=== PATIENT | female | born 1940 ===

== ENCOUNTER 2024-08-31 13:13 | Outpatient (AMB) | payer MEDICARE, SELFPAY ==
--- NOTE | 2024-08-31 13:18 | A.OFFVIS_ITS ---
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 She describes her pains as sharp in nature. She did have injections of Zilretta given into both of her knees by a provider at [facility] approximately 2 months ago. She got fairly good relief from those injections. She continues to exercise as much as possible. She does take Tylenol as needed for pain. Allergies Seasonal Allergies Allergy (Unknown, Verified 08/31/24 13:49) Unknown Sulfa (Sulfonamide Antibiotics) Adverse Reaction (Unknown, Verified 08/31/24 13:49) Unknown pollen Adverse Reaction (Unknown, Uncoded 08/31/24 13:49) Unknown Medication List - Last Reconciled 09/01/24 by Juan J Montes MD acetaminophen ER (Tylenol Arthritis Pain) 1,300 mg PO Q12H bupropion HCl XL 300 mg PO DAILY sumatriptan succinate 100 mg PO ONCE PRN PFSH Medical History (Updated 09/01/24 @ 06:48 by Juan J Montes MD) HX: breast cancer Osteopenia Osteoporosis Acute depression Arthritis Social History (Updated 08/31/24 @ 13:51 by JAYSON Barr) Alcohol intake: current Alcohol intake frequency: a few times a month Patient Tobacco Use Status: Former Tobacco user Current occupational status: retired Physical Exam Vital Signs: BMI result Body Mass Index 19.4 Const Other: Well-nourished well-developed very friendly female awake alert and oriented x3 in no acute distress Extrem Other: Bilateral lower extremity examination shows good capillary refill, no skin lesions noted, normal sensation light touch Bilateral knee examination shows minimal effusions, palpable crepitus with range of motion, pain with range of motion, range of motion from -3 degrees to 115 degrees, no instability Results Reviewed Results Reviewed: X-rays of the patient's bilateral knee show joint space narrowing, subchondral sclerosis, no acute bony abnormalities MRI of the patient's bilateral knee show severe degenerative joint disease Assessment & Plan Assessment & Plan (1) Arthritis of left knee: Code(s): M17.12 - Unilateral primary osteoarthritis, left knee Category: Medical (2) Arthritis of right knee: Code(s): M17.11 - Unilateral primary osteoarthritis, right knee Category: Medical Plan Ms. Garcia presents with bilateral knee pains, left greater than right, due to degenerative joint disease. I had a lengthy discussion with the patient regarding the treatment options. At this point the patient's symptoms are tolerable to her. She will continue with her exercise program. She will follow up with me on an as-needed basis should her symptoms worsen in any way. I spent 21 minutes in reviewing the patient's records and imaging studies, seeing the patient and documenting in the medical record. Orders: Orders XR knee LT 3V 08/31/24 M25.562 - Pain in left knee XR knee RT 3V 08/31/24 M25.561 - Pain in right knee Coding Level of Care Code New Pt Level 3 (92156) Complex EM visit Add On G2211 Diagnoses Arthritis of left knee M17.12 Arthritis of right knee M17.11
[2024-08-31 13:49] VITALS: BMI 19.4
== END 2024-08-31 14:23 | disposition home or self-care (01) ==
PROVIDERS: Visit Provider Orthopaedic Surgery
DX: M17.0 Bilateral primary osteoarthritis of knee (principal)
CPT/HCPCS: 99203; G2211

== ENCOUNTER 2024-08-31 15:28 | Outpatient (REF) | payer MEDICARE, SELFPAY ==
--- NOTE | ~2024-08-31 | XR_ITS ---
EXAMINATION: XR LEFT KNEE CLINICAL INFORMATION: Pain in left knee M25.562. COMPARISON: None available TECHNIQUE: Three views of the left knee. FINDINGS: Mild -moderate tricompartment osteoarthritis, with joint space loss, osteophytes. Chronic calcification anterior to the proximal tibia on the lateral projection. No acute fracture or dislocation. No significant joint effusion. No abnormal soft tissue calcification. XR/XR knee LT 3V IMPRESSION: Mild -moderate tricompartment osteoarthritis. Study is assigned/presented to me for interpretation on Oct 07, 2024 Electronically signed by: Jose L Hubbard MD 10/07/2024 02:11 PM STEVEN
--- NOTE | ~2024-08-31 | XR_ITS ---
EXAMINATION: XR RIGHT KNEE CLINICAL INFORMATION: Pain in right knee M25.561. COMPARISON: None available. TECHNIQUE: Three views of the right knee. FINDINGS: Severe lateral compartment arthritis. Mild -moderate patellofemoral and mild lateral compartment arthritis. No visible acute fracture or dislocation. No significant effusion. Ossifications in the lateral aspect of the knee, could reflect loose bodies. XR/XR knee RT 3V IMPRESSION: Tricompartment osteoarthritis. Severe lateral compartment arthritis. Study is assigned/presented to me for interpretation on Oct 07, 2024 Electronically signed by: Jose L Hubbard MD 10/07/2024 04:35 PM STEVEN
== END 2024-08-31 15:29 | disposition home or self-care (01) ==
LOC: HO.HOSX 15:28
PROVIDERS: Visit Provider Orthopaedic Surgery
DX: M25.562 Pain in left knee (principal); M25.561 Pain in right knee; M17.0 Bilateral primary osteoarthritis of knee
CPT/HCPCS: 73562; 99202

== ENCOUNTER 2025-01-05 11:02 | Outpatient (AMB) | payer MEDICARE, SELFPAY ==
[2025-01-05 11:04] VITALS: BMI 19.4
--- NOTE | 2025-01-05 11:04 | MHC.OFFVIS ---
Vital Signs 01/05/25 11:04 Height 5 ft 2.5 in Weight 108 lb BMI 19.4 Intake Visit Reasons: Right knee pain Intake Note: Mishel is an 84 year old female who presents with complaints of progressively worsening bilateral knee pains, right greater than left. She describes her right knee pain as sharp and severe in nature, /10. Her right knee pain has gotten worse over the last few years in spite of continued non operative treatments. She has tried physical therapy exercises which aggravated her pain. She has also tried Tylenol and anti-inflammatory medicines which gave her minimal relief. She has had multiple injections. The most recent injection gave her only temporary relief. The patient has difficulty walking even short distances because of her right knee pain. At this point her right knee pain is interfering with her activities of daily living and her ability to sleep well through the night. Allergies Seasonal Allergies Allergy (Unknown, Verified 01/05/25 11:12) Unknown Sulfa (Sulfonamide Antibiotics) Adverse Reaction (Unknown, Verified 01/05/25 11:12) Unknown pollen Adverse Reaction (Unknown, Uncoded 01/05/25 11:12) Unknown Medication List - Last Reconciled 01/05/25 by Juan J Montes MD acetaminophen ER (Tylenol Arthritis Pain) 1,300 mg PO Q12H bupropion HCl XL 300 mg PO DAILY citalopram 10 mg PO DAILY sumatriptan succinate 100 mg PO ONCE PRN tramadol 50 mg PO Q6H PRN PFSH Medical History HX: breast cancer Osteopenia Osteoporosis Acute depression Arthritis Social History Alcohol intake: current Alcohol intake frequency: a few times a month Patient Tobacco Use Status: Former Tobacco user Current occupational status: retired Physical Exam Vital Signs: BMI result Body Mass Index 19.4 Const Other: Well-nourished well-developed very friendly female awake alert and oriented x3 in no acute distress Extrem Other: Bilateral lower extremity examination shows good capillary refill, no skin lesions noted, normal sensation light touch Right knee examination shows a minimal effusion, palpable crepitus with range of motion, pain with range of motion, range of motion from -3 degrees to 115 degrees, no instability Results Reviewed Results Reviewed: X-rays of the patient's right knee taken previously show end-stage degenerative joint disease with grade 4 [id number] arthritis, subchondral sclerosis, osteophyte formation, no acute bony abnormalities Assessment & Plan Assessment & Plan (1) Right knee pain: Code(s): M25.561 - Pain in right knee Category: Medical (2) Arthritis of right knee: Code(s): M17.11 - Unilateral primary osteoarthritis, right knee Category: Medical Plan Ms. Roberts presents with progressively worsening right knee pain due to end-stage degenerative joint disease. I had a lengthy discussion with the patient regarding the treatment options. At this point she has failed continued non operative treatments. The risks and benefits of right total knee replacement surgery were discussed at length with the patient. The patient is interested in proceeding with surgery. I will have my office contact the patient to pick a surgery date. I will see her back to his prior to her surgery to answer any final questions that she might have. I spent 21 minutes in reviewing the patient's records and imaging studies, seeing the patient and documenting in the medical record. Coding Level of Care Code New Pt Level 3 (06309) Complex EM visit Add On G2211 Diagnoses Right knee pain M25.561 Arthritis of right knee M17.11
--- OUTSIDE RECORDS SUMMARY | 2025-01-05 13:13 | XMS_ITS | Clinical Summary ---
Author Organization [facility] Address [address] [place] [address] Care Team Providers Care Residential Solar Sales Consultant Name Role Phone Meenu Moya MD Primary Care Provider Immunizations Name Administration Dates Next Due Covid-19 (Pfizer) Dilution Required 10/16/2020 Social History Tobacco Use Types Packs/Day Years Used Date Smoking Tobacco: Never Assessed Sex and Gender Information Value Date Recorded Sex Assigned at Female 10/16/2020 1:57 PM EST Gender Identity Not on file Sexual Orientation Not on file Plan of Treatment Health Maintenance Due Date Last Done Comments Depression Screening 1950 Preventative Health Evaluation 1956 DTap / Tdap / Td (1 - Tdap) 1957 Shingrix-Zoster Vaccine (1 of 2) 1988 Fall Risk Assessment 2003 Osteoporosis Screening (DEXA Scan) 2003 Pneumococcal Vaccine (1 of 1 - PCV) 2003 RSV Adult > 60+ Yrs or Pregn ant (1 - 1-dose 75+ series) 2013 COVID-19 Vaccine (2 - 2023-2 5 season) 2024 10/16/2020 Influenza Vaccine (#1) 2024 Hepatitis B Vaccines Aged Out No long er eligible based on patient's age to complete this topic RSV Ped < 20 months Aged Out No longe r eligible based on patient's age to complete this topic Care Teams Residential Solar Sales Consultant Relationship Specialty Start Date End Date Meenu Moya MD [address] [place] [address] PCP - General Internal Medicine 10/16/20
--- OUTSIDE RECORDS SUMMARY | 2025-01-05 13:13 | XMS_ITS | Patient Health Record ---
Author Organization [facility] Address [address] [place] [address] Care Team Providers Care Respiratory Therapy Director Name Role Phone Meenu Moya Primary Care Provider Demarcus Lackey Unavailable [phone] Allergies Allergen (clinical drug ingredient) Drug/Non Drug Allergy documented on EMR Reaction Allergy Type Onset Date Status Substance with sulfonamide structure and antibacterial mechanism of action (substance) Sulfa Antibiotics rash Drug Allergy Active Reason For Referral No Information Medications Medication SIG (Take, Route, Frequency, Duration) Notes Start Date End Date Status buPROPion HCl ER (SR) 200 MG 1 tablet in the morning Orally Once a day for 30 day(s) Active SUMAtriptan Succinate 100 MG Oral for 30 Active Ketoconazole 2 % External for 5 Not-Taking Social History Alcohol Screen Question Answer Notes Did you have a drink containing alcohol in the p ast year? No Points 0 Interpretation Negative Tobacco use other than smoking: Question Answer Notes Are you an other tobacco user? No Problems Problem Type SNOMED Code ICD Code Onset Dates Problem Status W/U Status Risk Notes Problem Acquired hammer toe of right foot (6461687370305 105) Other hammer toe(s) (acquired), right foot (M20.41) Active confirmed Problem Acquired hammer toe of left foot (4153497680508 103) Other hammer toe(s) (acquired), left foot (M20.42) Active confirmed Plan Of Treatment Pending Test Test Name Order Date X ray : Foot, left 3V 02/13/2021 X ray : Foot, right 3V 02/13/2021 Insurance Providers Payer Name Payer Address Payer Phone Subscriber Number Group Number Insured Name Patient Relationship to Insured Coverage Start Date Coverage End Date Medicare National [employer] [address] [place] [address] [phone] [id number] Mishel Molina Self - patient is the insured [employer] [address] [place] [address] [phone] [id number] Mishel Molina Self - patient is the insured Medical (General) History Medical History History ICD Code Back,Hip,and Knee pain Chicken pox Headaches Measles Neuralgia and neuritis, unspecified M79. 2 Osteoporosis Pain in right foot M79.671 Pain in left toe(s) M79.675 Transfusions Tinea unguium B35.1 Surgical History Surgery Date(Month/Year) Breast Reduction
--- OUTSIDE RECORDS SUMMARY | 2025-01-05 13:13 | XMS_ITS | Continuity of Care Document ---
Author Organization [facility] [address] [place] [address] Phone [phone] Care Team Providers Care Facing End Trimmer Name Role Phone Meenu Moya M.D. Care Team Information Receiv er [phone] Problems Active Problems Provider Date Osteoporosis Radha Duque M.D. Ons et: 11/21/2022 Recurrent urinary tract infection Radha Wright M.D. Onset: 11/21/2022 Chronic low back pain Con Conrad Onset: 11/21/2022 Osteoarthritis of knee Herminia Conrad Onset: 11/21/2022 Migraine Radha Duque M.D. Ons et: 11/21/2022 Lobular carcinoma in situ of breast Radha Rooney M.D. Onset: 11/21/2022 Lumbar radiculopathy Pedro Conrad Onset: 11/21/2022 H/O: depression Radha Duque M.D. Ons et: 11/21/2022 Social History Type Date Description Comments Sex Unknown Marital Status Legal Status: Lives With Alone Work Status Retired ETOH Use Consumes 5-6 gla sses of wine per week Tobacco Use Start: Unknown End: Unknown Patient is a former smoker Quit approx 1969 Allergies and adverse reactions Active Allergies Criticality Reaction Severity Comments Date Sulfamethizole Unable to assess criticality Hives 11/21/2022 Medications Active Medications SIG Qnty Indications Order ing Provider Date Ketoconazole2% Cream Apply 1-2 Times Trudy ly For Facial Redness And Scale Unknown Bupropion Hydrochloride ER (SR)200mg Tablets ER 12HR Take 1 Tablet By Mouth Once Daily Meenu Moya M.D. Sumatriptan [id number] Tablets take as directed for migraines Radha Duque M.D. Multivitamin Adults 50+Adlt 50+ Tablets 1 by mouth every day Kiran Duque M.D. [id number] Capsules 1 by mouth every day Radha Duque M.D. Citracal +[id number] nit Chewtabs 2 by mouth every day Radha Duque M.D. Citalopram [id number] Tablets 1 qd Meenu Myoa M.D. Tramadol [id number] Tablets Take 1 To 2 Tablets By Mouth Twice Daily With Acetaminophen 1000 MG Velasquez Rolle MD Vital Signs Date Vital Result Comment 12/23/2024 11:16am BP Systolic 112 mmHg BP Diastolic 60 mmHg Heart Rate 74 /min Height 62 inches 5'2 Weight 107.00 lb BMI (Body Mass Index) 19.6 kg/m2 Results Test Acquired Date Facility Test Result H/L Range Note Albumin 04/23/2022 [facility] Albumin 4.3 GM/DL (3.4-4.8 ) Calcium 04/23/2022 [facility] Calcium 9.0 mg/dL (8.6-10. 5) 25Oh Vitamin D 04/23/2022 [facility] 25Oh Vitamin D 64.9 NG/ML High (20-50) Creatinine 04/23/2022 [facility] Creatinine 0.8 mg/dL (0.5-1.0 ) Estimated GFR Creatinine 73 ML/MIN/1.73 M2 1 Creatinine, Urine MG/DL 04/23/2022 [facility] Creatinine, Urine MG/DL 144.4 mg/dL N-Telopeptide Cross Links, Urine 04/23/2022 [facility] Cross Linked N-Telopeptides 245 2 Creat, Urine 127.7 3 N-Telopeptide/C re at Ratio 22 4 NTX Interpretaion Comment 5 1 Creatinine based est imated glomerular filtration (eGFR) in adults is calculated using the National Kidney Foundation recommended 2020 CKD-EPI equation. Estimates GFR from serum creatinine, age and sex. 2 Reference range: Not Estab. Unit: nmol BCE [place] [address] 3 Reference range: Not Estab. Unit: mg/dL [facility] [address] [place] [address] 4 Reference range: 0 t o 89 Unit: nM BCE/mM Cr 5 (NOTE) The N-telopeptide and Creatinine are used to calculate the N-telo/Creat. Ratio which is referred to as NTx . Suggested guidelines for the clinical use of NTx are as follows: 1. Menopausal Women not on Hormone Replacement Therapy (HRT): Women with a baseline NTx value >38 are at significant risk for a decrease in bone mineral density (BMD) after 1 year compared to women on HRT. The probability of a decline in BMD increases with NTx value as follows: (1): Baseline NTx Probability of Decrease in BMD 18- 38 1.4 p EQ 0.28 38- 51 2.5 p EQ 0.03 51- 67 3.8 p EQ 0.0006 67-188 17.3 p EQ 0.0001 2. Menopausal Women Receiving Antiresorptive Therapy: The probability that treatment is effective after three months is increased when the measured NTx value is <or EQ 38 nM BCE/mM CHECK OUT CLERK, or NTx has decreased >or EQ 30% from baseline.[1] 3. Patients with Paget's Disease of Bone: The probability that treatment is effective after one month is increased when the measured NTx value is within the reference range, or NTx has decreased >or EQ 30% from baseline.[2] 1. Gera CH, Bueno NH, Samir GS, et al. Am J Med, 102:29-37,1997. (1):M757, 1996. 2. Bhavesh H, Davidson Kinsey, et al. J Bone Min Res.11(1):M757,1996 Test performed at [facility], [address] [place] [address] Medical Devices Description No Information Available Encounters Type Date Location Provider Dx Diagnosis Office Visit 12/23/2024 11:00a Main Office Radha Duque M.D. M81.0 Age-related osteoporosis w/o current pathological fracture Assessments Date Code Description Provider 12/23/2024 M81.0 Age-related oste oporosis without current pathological fracture Radha Duque M.D. Plan of Treatment Future Appointment(s):* 12/29/2025 1:00 pm - Radha Duque M.D. at Main Office 11/21/2022 - Radha Duque M.D.* M81.0 Age-related osteoporosis without current pathological fracture* New Xrays:* Dexa Bone Density Study Axial Skeleton, Ordered: 11/21/22 Functional Status Description No Information Available Mental Status Description No Information Available Referrals Description No Information Available
--- OUTSIDE RECORDS SUMMARY | 2025-01-05 13:13 | XMS_ITS | Clinical Summary ---
Author Organization [facility] Address [address] [place] [address] Care Team Providers Care Dairy Bar Manager Name Role Phone Meenu Moya MD Primary Care Provider [phone] Encounters Date Type Department Care Team Description 12/10/2024 Telephone Gastroenterology - [address] [facility] [address] [place] [phone] Tashi Lind [place] 11/30/2024 Telephone Gastroenterology - [address] [facility] [address] [facility] [address] [place] [phone] Malik Haider PA from Last 3 Months Social History Tobacco Use Types Packs/Day Years Used Date Smoking Tobacco: Never Assessed Comments Unknown Sex and Gender Information Value Date Recorded Sex Assigned at Not on file Legal Sex Female 1:47 PM EST Gender Identity Not on file Sexual Orientation Not on file Plan of Treatment Health Maintenance Due Date Last Done Comments DTaP,Tdap,and Td Vaccines (1 - Tdap) 1957 Pneumococcal Vaccine: 50+ Ye ars (1 of 1 - PCV) 1988 Zoster Vaccines (1 of 2) 1988 RSV Immunization Adult Patie nts (1 - 1-dose 75+ series) 2013 Depression Screening 08/20/2022 Falls Risk Assessment 08/20/2022 Osteoporosis Screening (Bone Density Screening) 08/20/2022 Social Influencers of Health Screening 08/20/2022 COVID-19 Vaccine (2 - 2023-2 5 season) 2024 10/16/2020 Influenza Vaccine (Season Ended) 2025 HIB Vaccines Aged Out No longer eligi ble based on patient's age to complete this topic HPV Vaccines Aged Out No longer eligi ble based on patient's age to complete this topic Hepatitis A Vaccines Aged Out No long er eligible based on patient's age to complete this topic Hepatitis B Vaccines Aged Out No long er eligible based on patient's age to complete this topic IPV Vaccines Aged Out No longer eligi ble based on patient's age to complete this topic MMR Vaccines Aged Out No longer eligi ble based on patient's age to complete this topic Meningococcal ACWY Vaccine Aged Out N o longer eligible based on patient's age to complete this topic Meningococcal B Vaccine Aged Out No l onger eligible based on patient's age to complete this topic RSV Immunization Patients Un papa 20 months Aged Out No longer eligible b ased on patient's age to complete this topic Varicella Vaccines Aged Out No longer eligible based on patient's age to complete this topic Care Teams Dairy Bar Manager Relationship Specialty Start Date End Date Meenu Moya MD PCP - General Internal Medicine 10/16/20
== END 2025-01-05 11:34 | disposition home or self-care (01) ==
LOC: HO.HOS 11:02
PROVIDERS: Visit Provider Orthopaedic Surgery
DX: M17.11 Unilateral primary osteoarthritis, right knee (principal)
CPT/HCPCS: 99213; G2211

== ENCOUNTER → 2025-01-05 11:02 | Outpatient (BNVA) | payer MEDICARE, SELFPAY | PROVIDERS: Visit Provider Orthopaedic Surgery | DX: M17.11 Unilateral primary osteoarthritis, right knee (principal); M25.562 Pain in left knee | CPT/HCPCS: 99212 ==